=== PATIENT | male | born 1980 | race Caucasian/White ===

== ENCOUNTER 2016-12-22 21:46 | Emergency (ER) | payer OTHER ==
[~2016-12-22] VITALS: Ht 172.7 cm; Wt 95.3 kg
[2016-12-22] MEDS ORDERED: BUPIVACAINE PF 0.5% 30 ML VIAL TP ONE (22:15)
[2016-12-22] MEDS ORDERED: OXYCODONE/APAP 5-325 MG TABLET PO ONE (22:30)
[2016-12-22] MEDS ORDERED: CLINDAMYCIN HCL 150 MG CAPSULE PO ONE (22:30)
--- NOTE | 2016-12-22 22:39 | NUR ---
Patient discharged to home in stable conditon. Written and verbal after care instructions given. Patient verbalizes understanding of instructions.
[2016-12-22] MEDS ORDERED: OXYCODONE/APAP 5-325 MG TABLET ONE (22:43)
[2016-12-22] MEDS ORDERED: CLINDAMYCIN HCL 300 MG CAPSULE ONE (22:43)
== END 2016-12-22 22:40 | disposition home or self-care (01) ==
LOC: ER 21:46
DX: K08.89 Other specified disorders of teeth and supporting structures (principal); Z88.0 Allergy status to penicillin
CPT/HCPCS: A4663; J3490

== ENCOUNTER 2021-06-27 13:04 | Emergency (ER) | payer BC, OTHER ==
[~2021-06-27] VITALS: Ht 172.7 cm; Wt 108.9 kg
--- NOTE | 2021-06-27 14:23 | NUR ---
Patient discharged to home in stable condition. Written and verbal after care instructions given. Patient verbalizes understanding of instructions. Stressed follow up or return to ER for worsening s/s.
== END 2021-06-27 15:03 | disposition home or self-care (01) ==
LOC: ER 13:04
DX: S93.401A Sprain of unspecified ligament of right ankle, initial encounter (principal); Y93.39 Activity, other involving climbing, rappelling and jumping off; Y93.89 Activity, other specified; Y92.89 Other specified places as the place of occurrence of the external cause
CPT/HCPCS: 73610; 73630; A4663